=== PATIENT | male | born 1965 | race Caucasian/White ===

== ENCOUNTER 2024-07-14 16:31 | Inpatient (IN) | payer MEDICAID ==
[~2024-07-14] VITALS: Ht 188 cm; Wt 80.0 kg
[~2024-07-14 16:31] MED LIST: ACET-1881 PO; ALBU18; ASPI1TAB20 PO; METH-1181 PO
[2024-07-14 19:42] LABS: Basophils # (auto) 0 10 ^3/uL (0-0.2); Basophils % (auto) 0.5 % (0.0-2.0); Eosinophils # (auto) 0 10 ^3/uL (0-0.8); Eosinophils % (auto) 0.3 % (0.0-7.0); Hematocrit 47.3 % (41.0-53.0); Hemoglobin 15.8 g/dL (13.5-17.5); Lymphocytes # (auto) 1.8 10 ^3/uL (0.4-5.4); Lymphocytes % (auto) 33.5 % (10.0-50.0); Mean Corpuscular Hemoglobin 28.9 pg (28.0-32.0); Mean Corpuscular Hgb Conc. 33.4 g/dL (32.0-36.0); Mean Corpuscular Volume 86.5 fL (80.0-100.0); Monocytes # (auto) 0.8 10 ^3/uL (0-1.3); Monocytes % (auto) 14.9 % (0.0-12.0); Neutrophils # (auto) 2.8 10 ^3/uL (1.6-8.6); Neutrophils % (auto) 50.8 % (37.0-80.0); Nucleated Red Blood Cells % 0.3 %; Platelet Count (auto) 297 10^3/uL (140-450); Red Blood Cells 5.47 10^6/uL (4.5-5.90); Red Cell Distribution Width 13.4 % (11.8-14.3); White Blood Cell 5.4 10^3/uL (4.4-10.8)
[2024-07-14 20:02] LABS: Alanine Aminotransferase 12 U/L (7-40); Albumin 4.3 g/dL (3.2-4.8); Alkaline Phosphatase 94 U/L (46-116); Anion Gap 5 (5-15); Aspartate Aminotransferase 18 U/L (13-40); BUN/Creatinine Ratio 12.6 (10.0-20.0); Bilirubin, Total 0.5 mg/dL (0.2-1.0); Blood Urea Nitrogen 14 mg/dL (9-23); Calcium 8.9 mg/dL (8.7-10.4); Carbon Dioxide 28 mmol/L (20-30); Chloride 102 mmol/L (98-107); Glucose 121 mg/dL (74-106); Sodium 135 mmol/L (136-145); Total Protein 7.3 g/dL (5.7-8.2)
[2024-07-14] MEDS ORDERED: ACETAMINOPHEN 325 MG TAB PO PRN (22:45)
[2024-07-14] MEDS ORDERED: NITROGLYCERIN 0.4 MG SL TAB SL PRN (22:45)
[2024-07-14] MEDS ORDERED: ONDANSETRON HCL 4 MG/2 ML VIAL IV PRN (22:45)
[2024-07-14] MEDS ORDERED: ALBUTEROL SULF 2.5 MG/0.5ML(0.5%) NEB SOLN NEB PRN (22:45)
[2024-07-14] MEDS ORDERED: MORPHINE SULFATE INJ 2 MG/ml SYRG IV PRN (22:45)
[2024-07-14 22:59] LABS: Triglycerides 106 mg/dL (< 150)
[2024-07-14 23:00] LABS: LDL Cholesterol 144 mg/dL (< 100)
[2024-07-14 23:01] LABS: Cholesterol 199 mg/dL (< 200); HDL Cholesterol 41 mg/dL (40-59)
[2024-07-14] MEDS: ONDANSETRON HCL 4 MG/2 ML VIAL IV ONE (23:08)
[2024-07-14] MEDS: SODIUM CHLORIDE 0.9% 1,000 ML IV ONE (23:08)
[2024-07-14 23:13] VITALS: O2SAT 100
[2024-07-14] MEDS: KETOROLAC TROMETH 30 MG/ML 1ML VIAL IV ONE (23:16)
[2024-07-14] MEDS: FAMOTIDINE (10MG/ML) 2ML VL IV ONE (23:16)
[2024-07-14 23:30] VITALS: BP 122/79; PULSE 89; RESP 14; TEMP 100.3; O2SAT 100
[2024-07-15] VITALS (10 sets, daily range): BP systolic 101–137; BP diastolic 58–90; PULSE 67–85; RESP 16–20; TEMP 98.1–98.9; O2SAT 94–100
[2024-07-15 01:41] LABS: COVID19 ANTIGEN SOFIA FIA POSITIVE (NEGATIVE)
[2024-07-15 05:14] LABS: Chloride 105 mmol/L (98-107); Potassium 3.5 mmol/L (3.5-5.1); Sodium 138 mmol/L (136-145)
[2024-07-15 05:15] LABS: Anion Gap 3 (5-15); Calcium 8.4 mg/dL (8.7-10.4); Carbon Dioxide 30 mmol/L (20-30)
[2024-07-15 05:20] LABS: BUN/Creatinine Ratio 13.9 (10.0-20.0); Blood Urea Nitrogen 16 mg/dL (9-23); Glucose 100 mg/dL (74-106)
[2024-07-15] MEDS ORDERED: REMDESIVIR PER PHARMACY 0 ML IV SCH (07:00)
[2024-07-15 08:18] LABS: Magnesium 2.1 mg/dL (1.6-2.6)
[2024-07-15 08:19] LABS: CRP High Sensitivity 0.65 mg/dL (<1.0)
[2024-07-15] MEDS: ENOXAPARIN SOD 40 MG/0.4 ML SYRINGE SC SCH ×2 (08:43→09:53)
[2024-07-15 08:58] LABS: Hepatitis C Antibody Negative (Negative)
[2024-07-15] MEDS: ASPirin 81 mg TAB PO SCH (09:51)
[2024-07-15] MEDS: ZINC SULFATE 220mg CAP or TAB PO SCH (09:51)
[2024-07-15] MEDS: AZITHROMYCIN 500MG/ 250ML 250 ML IV SCH (09:53)
[2024-07-15] MEDS: REMDESIVIR 200 MG in NS 210ml LOADING DOSE ADULT IV ONE (15:00)
[2024-07-15] MEDS: DexAMETHasone SOD PHOS 10MG/1ML VIAL INJ IV ONE (16:54)
[2024-07-15] MEDS: ALBUTEROL SULF HFA 90MCG INH 200DOSE IN PRN (20:22)
[2024-07-15] MEDS: ATORVASTATIN 20 MG TAB PO SCH (21:57)
[2024-07-16] VITALS (7 sets, daily range): BP systolic 112–134; BP diastolic 55–88; PULSE 58–77; RESP 17–24; TEMP 97.4–98.4; O2SAT 96–98
[2024-07-16 06:07] LABS: Basophils # (auto) 0 10 ^3/uL (0-0.2); Basophils % (auto) 0.3 % (0.0-2.0); Eosinophils # (auto) 0 10 ^3/uL (0-0.8); Hematocrit 45.1 % (41.0-53.0); Hemoglobin 15.4 g/dL (13.5-17.5); Lymphocytes # (auto) 1.5 10 ^3/uL (0.4-5.4); Lymphocytes % (auto) 32.1 % (10.0-50.0); Mean Corpuscular Hemoglobin 29.1 pg (28.0-32.0); Mean Corpuscular Volume 85.6 fL (80.0-100.0); Monocytes # (auto) 0.5 10 ^3/uL (0-1.3); Monocytes % (auto) 10.6 % (0.0-12.0); Neutrophils # (auto) 2.7 10 ^3/uL (1.6-8.6); Nucleated Red Blood Cells % 0.2 %; Platelet Count (auto) 275 10^3/uL (140-450); Red Blood Cells 5.27 10^6/uL (4.5-5.90); Red Cell Distribution Width 13.4 % (11.8-14.3); White Blood Cell 4.8 10^3/uL (4.4-10.8)
[2024-07-16 06:33] LABS: Alanine Aminotransferase 23 U/L (7-40); Albumin 3.9 g/dL (3.2-4.8); Alkaline Phosphatase 86 U/L (46-116); Anion Gap 5 (5-15); Aspartate Aminotransferase 24 U/L (13-40); BUN/Creatinine Ratio 18.2 (10.0-20.0); Bilirubin, Total 0.4 mg/dL (0.2-1.0); Blood Urea Nitrogen 14 mg/dL (9-23); Calcium 9.1 mg/dL (8.7-10.4); Carbon Dioxide 28 mmol/L (20-30); Chloride 105 mmol/L (98-107); Glucose 112 mg/dL (74-106); Potassium 4.4 mmol/L (3.5-5.1); Sodium 138 mmol/L (136-145); Total Protein 6.8 g/dL (5.7-8.2)
[2024-07-16] MEDS: METOPROLOL TARTRATE 25 MG TAB PO ONE (11:47)
[2024-07-16] MEDS: MAGNESIUM OXIDE 400 MG TAB PO ONE (11:47)
[2024-07-16] MEDS ORDERED: METO25TA93 PO (14:51)
[2024-07-16] MEDS ORDERED: AZIT-185 PO (14:51)
[2024-07-16] MEDS ORDERED: MAGN400T40 PO (14:51)
[2024-07-16] MEDS ORDERED: REMDESIVIR 100mg 100 MG in SODIUM CHL 0.9% 230 ML IV SCH (15:00)
[2024-07-16] MEDS ORDERED: METOPROLOL TARTRATE 25 MG TAB PO SCH (22:00)
[2024-07-17] MEDS ORDERED: MAGNESIUM OXIDE 400 MG TAB PO SCH (10:00)
[2024-07-17 10:01] LABS: Hepatitis B Surface Antigen Negative (Negative)
== END 2024-07-16 16:48 | disposition home or self-care (01) | DRG 137 ==
LOC: ER 16:31 → TELE 22:38 → TELE-WESTW 07-15 05:00
PROVIDERS: ADMIT Nurse Practitioner; ATTEND Nurse Practitioner Acute Care
DX: U07.1 COVID-19 (principal); I47.20 Ventricular tachycardia, unspecified; J45.909 Unspecified asthma, uncomplicated; I49.3 Ventricular premature depolarization; E78.5 Hyperlipidemia, unspecified; R73.03 Prediabetes; I48.0 Paroxysmal atrial fibrillation; I25.2 Old myocardial infarction; Z79.899 Other long term (current) drug therapy; Z83.3 Family history of diabetes mellitus; Z82.3 Family history of stroke
CPT/HCPCS: 36415; 71045; 71046; 80048; 80053; 80061; 82306; 82728; 83036; 83605; 83735; 83880; 84443; 84484; 85025; 85379; 86141; 86803; 87340; 87426; 93306; 96374; G0378; J1100; J1885; J3490

== ENCOUNTER 2025-03-04 11:08 | Inpatient (IN) | payer MEDICAID ==
[~2025-03-04] VITALS: Ht 188 cm; Wt 83.6 kg
[~2025-03-04 11:08] MED LIST changes: +AZIT-185 PO; +MAGN400T40 PO; +METO25TA93 PO
--- NOTE | 2025-03-04 11:23 | ED.PDOC ---
History of Present Illness HPI Comments 59M presents to the ER w/ prior Hx of Pneumonia 2 months ago, AFIB, OR and Asthma which all may be associated to the c/c of body aches via 3 days. EMS report that the pt informed them that jasper wilde has been having chills, night sweat, N/V-Hematemesis for the past 3 days. When EMS arrived on scene the pt had a SAT of 92% RA and was given 5mg of albuterol and .5 Atrovent. PMHx of High Lipids. Denies chills, fever, /D, CP or no other associated symptoms, modifiers, recent injuries or sick contacts at this time. Time Seen by MD: 11:15 Primary Care Provider: unknown Reviewed Notes: Nurses Notes, Color Worker Notes, Medications, Allergies Allergies: Coded Allergies: NO KNOWN ALLERGIES (Unverified , 06/11/12) Home Meds Active Scripts Magnesium Oxide (MAGNESIUM OXIDE) 400 Mg Tab, 1 TAB PO DAILY, #30 TAB 5 Refills Prov:KEO JESSICA NP 07/16/24 Metoprolol Succinate (Metoprolol Succinate Er) 25 Mg Tab, 1 TAB PO DAILY, #90 TAB 1 Refill Prov:KEO JESSICA NP 07/16/24 Azithromycin (ZITHROMAX TABLET) 250 Mg Tb, 250 MG PO DAILY for 4 Days, #4 TAB Azithromycin pack unit dose 1. Give as directed. Prov:KEO JESSICA TIME STUDY CLERK 07/16/24 Reported Medications Methocarbamol (Methocarbamol) 500 Mg Tab, 500 MG PO BID, TAB 08/28/17 Acetaminophen (Acetaminophen) 325 Mg Tab, 500 MG PO TID PRN for MILD PAIN for 30 Days, MG 0 Refills 08/28/17 Aspirin (Aspir-81) 81 Mg Tab, 1 TAB PO DAILY, #30 TAB 5 Refills 08/28/17 Albuterol Sulfate (Ventolin Hfa) Aer, PRN 06/11/12 Information Source: Patient, Emergency Med Personnel Mode of Arrival: EMS Severity: Moderate Timing: Days Duration: Since onset, Days Prehospital treatment: None Past Medical History PAST MEDICAL HISTORY: AFIB, Asthma, High Lipids, OR Past Medical History (Other): pnem onia 2 months ago Surgical History: Denies all surgeries Family History Family History: Reviewed,noncontributory to illness, Unknown Social History Smoker: Non-Smoker Alcohol: Denies ETOH Use Drugs: Denies Drug Use Lives In: Home Constitutional: reports: chills, sweats (night); denies: diaphoresis, fatigue, fever, malaise, weakness, others EENTM: denies: blurred vision, double vision, ear bleeding, ear discharge, ear drainage, ear pain, ear ringing, eye pain, eye redness, hearing loss, mouth pain, mouth swelling, nasal discharge, nose bleeding, nose congestion, nose pain, photophobia, tearing, throat pain, throat swelling, voice changes, others Respiratory: denies: cough, hemoptysis, orthopnea, SOB at rest, shortness of breath, SOB with excertion, stridor, wheezing, others Cardiovascular: denies: chest pain, dizzy spells, diaphoresis, Dyspnea on exertion, edema, irregular heart beat, left arm pain, lightheadedness, pal pitations, PND, syncope, others Gastrointestinal: reports: hematemesis, nausea, vomiting; denies: abdomen distended, abdominal pain, blood streaked bowels, constipated, diarrhea, dysphagia, difficulty swallowing, melena, poor appetite, poor fluid intake, rectal bleeding, rectal pain, others Genitourinary: denies: burning, dysuria, flank pain, frequency, hematuria, incontinence, penile discharge, penile sore, pain, testicle pain, testicle swelling, urgency, others Neurological: denies: dizziness, fainting, headache, left sided numbness, left sided weakness, numbness, paresthesia, pre-existing deficit, right sided numbness, right sided weakness, seizure, speech problems, tingling, tremors, weakness, others Musculoskeletal: denies: back pain, gout, joint pain, joint swelling, muscle pain, muscle stiffness, neck pain, others Integumetry: denies: bruises, change in color, change in hair/nails, dryness, laceration, lesions, lumps, rash, wounds, others Allergic/Immunocompromised: denies: Difficulty Healing, Frequent Infections, Hives, Itching, others Hematologic/Lymphatic: denies: anemia, blood clots, easy bleeding, easy bruising, swollen glands, others Endocrine: denies: excessive hunger, excessive sweating, excessive thirst, excessive urination, flushing, intolerance to cold, intolerance to heat, unexplained weight gain, unexplained weight loss, others Psychiatric: denies: anxiety, bipolar disorder, depression, hopeless, panic disorder, schizophrenia, sleepless, suicidal, others All Other Systems: Reviewed and Negative Physical Exam General Appearance: Moderate Distress, Normal HEENT: Normal ENT Inspection, Pharynx Normal, TMs Normal Neck: Full Range of Motion, Non-Tender, Normal, Normal Inspection Respiratory: Chest Non-Tender, No Accessory Muscle Use, Respiratory Distress, Wheezing Cardiovascular: No Edema, No JVD, No Murmur, No Gallop, Normal Peripheral Pulses, Regular Rate/Rhythm Breast Exam: Deferred Gastrointestinal: No Organomegaly, Non Tender, No Pulsatile Mass, Normal Bowel Sounds, Soft Genitalia: Deferred Pelvic: Deferred Rectal: Deferred Extremities: No calf tenderness, Normal capillary refill, Normal inspection, Normal range of motion, Non-tender, No pedal edema Musculoskeletal : Apperance: Normal Neurologic: Alert, corporate giving manager II-XII nml as Tested, No Motor Deficits, Normal Affect, Normal Mood, No Sensory Deficits Cerebellar Function: NOT DONE Reflexes: NOT DONE Skin: Dry, Normal Color, Warm Peripheral Pulses: 3+ Radial (R), 3+ Radial (L) Lymphatic: No Adenopathy Was a procedure done? Was a procedure done?: No EKG EKG : Pulse Rate (adult): 77 [place]: Normal Cardiac Rhythm: NSR Differential Dx Considerations may include: Asthma exacerbation Electrolyte imbalance X-Ray, Labs, Meds, VS Vital Signs Date Time Temp Pulse Resp B/P (MAP) Pulse Ox O2 Delivery O2 Flow Rate FiO2 03/04/25 11:30 98.2 103 22 125/77 (93) 95 98.2 03/04/25 11:28 16 90 Room Air* 0 21 Lab Test 03/04/25 11:22 Range/Units White Blood Count 10.2 4.4-10.8 10^3/uL Red Blood Count 5.23 4.5-5.90 10^6/uL Hemoglobin 15.2 13.5-17.5 g/dL Hematocrit 45.1 41.0-53.0 % Mean Corpuscular Volume 86.2 80.0-100.0 fL Mean Corpuscular Hemoglobin 29.1 28.0-32.0 pg Mean Corpuscular Hemoglobin Concent 33.8 32.0-36.0 g/dL Red Cell Distribution Width 13.0 11.8-14.3 % Platelet Count 361 140-450 10^3/uL Mean Platelet Volume 7.1 6.9-10.8 fL Neutrophils (%) (Auto) 62.9 37.0-80.0 % Lymphocytes (%) (Auto) 22.2 10.0-50.0 % Monocytes (%) (Auto) 13.3 H 0.0-12.0 % Eosinophils (%) (Auto) 0.8 0.0-7.0 % Basophils (%) (Auto) 0.8 0.0-2.0 % Neutrophils # (Auto) 6.4 1.6-8.6 10 ^3/uL Lymphocytes # (Auto) 2.3 0.4-5.4 10 ^3/uL Monocytes # (Auto) 1.4 H 0-1.3 10 ^3/uL Eosinophils # (Auto) 0.1 0-0.8 10 ^3/uL Basophils # (Auto) 0.1 0-0.2 10 ^3/uL Nucleated Red Blood Cells 0.1 % Sodium Level 136 136-145 mmol/L Potassium Level 4.2 3.5-5.1 mmol/L Chloride Level 102 98-107 mmol/L Carbon Dioxide Level 28 20-31 mmol/L Anion Gap 6 5-15 Blood Urea Nitrogen 11 9-23 mg/dL Creatinine 1.01 0.700-1.30 mg/dL Glomerular Filtration Rate Calc 85 >90 mL/min BUN/Creatinine Ratio 10.9 10.0-20.0 Serum Glucose 104 74-106 mg/dL Calcium Level 9.5 8.7-10.4 mg/dL Troponin I High Sensitivity 11 </=54 ng/L Current Medications Medications (Trade) Dose Ordered Sig/Judy Route Start Time Stop Time Status Last Admin Albuterol (Ventolin Medneb) 5 mg ONCE ONCE NEB 03/04/25 11:15 03/04/25 11:16 DC 03/04/25 11:24 Ipratropium [place] (Atrovent Medneb) 0.5 mg ONCE ONCE NEB 03/04/25 11:15 03/04/25 11:16 DC 03/04/25 11:24 Patient alert. Complaining of shortness a breath. Was given breathing treatment. History of asthma. Was given steroid. Continues to have shortness a breath. Reviewed his history. Explained to the patient. Continue cardiac monitoring. Chest x-ray reviewed does not show any acute changes. Cardiac marker within normal limits. EKG reviewed does not show any acute changes. Time of 1ST Reevaluation: 11:45 Reevaluation 1ST: Unchanged Patient Education/Counseling: Diagnosis, Treatment, Prognosis Family Education/Counseling: No Family Present Departure 1 Departure Time of Disposition: 12:24 Impression: Primary Impression: Asthma exacerbation Qualified Codes: J45.41 - Moderate persistent asthma with (acute) exacerbation Disposition: ADMITTED INPATIENT Admit to: Med Surg Condition: Guarded Critical Care Note Critical Care Time?: Yes (45 min-critical care time only) Critical care comment: Continue breathing treatment Stability Stability form required: No Heart Score Heart Score: Heart Score Response (Comments) Value History Slightly Suspicious 0 EKG Normal 0 Age 45-64 1 Risk Factors 1 or 2 risk factors 1 Troponin Normal limit 0 Total 2 I personally scribed for CRISTOPHER BARRIENTOS MD ([email or web address]) on 03/04/25 at 11:23. E lectronically submitted by Brian Dodson ([email or web address]). CRISTOPHER BARRIENTOS MD Mar 04, 2025 11:23
[2025-03-04] MEDS: ALBUTEROL SULF 2.5 MG/0.5ML(0.5%) NEB SOLN NEB ONE ×2 (11:24→12:35)
[2025-03-04] MEDS: IPRATROPIUM BROM 0.5 MG/2.5ML INH SOL NEB ONE ×2 (11:24→12:35)
[2025-03-04 11:40] LABS: Basophils # (auto) 0.1 10 ^3/uL (0-0.2); Basophils % (auto) 0.8 % (0.0-2.0); Eosinophils # (auto) 0.1 10 ^3/uL (0-0.8); Eosinophils % (auto) 0.8 % (0.0-7.0); Hematocrit 45.1 % (41.0-53.0); Hemoglobin 15.2 g/dL (13.5-17.5); Lymphocytes # (auto) 2.3 10 ^3/uL (0.4-5.4); Lymphocytes % (auto) 22.2 % (10.0-50.0); Mean Corpuscular Hemoglobin 29.1 pg (28.0-32.0); Mean Corpuscular Hgb Conc. 33.8 g/dL (32.0-36.0); Mean Corpuscular Volume 86.2 fL (80.0-100.0); Monocytes # (auto) 1.4 10 ^3/uL (0-1.3); Monocytes % (auto) 13.3 % (0.0-12.0); Neutrophils # (auto) 6.4 10 ^3/uL (1.6-8.6); Neutrophils % (auto) 62.9 % (37.0-80.0); Nucleated Red Blood Cells % 0.1 %; Platelet Count (auto) 361 10^3/uL (140-450); Red Blood Cells 5.23 10^6/uL (4.5-5.90); White Blood Cell 10.2 10^3/uL (4.4-10.8)
[2025-03-04 11:42] LABS: Chloride 102 mmol/L (98-107); Potassium 4.2 mmol/L (3.5-5.1)
[2025-03-04 11:43] LABS: Anion Gap 6 (5-15); Calcium 9.5 mg/dL (8.7-10.4); Carbon Dioxide 28 mmol/L (20-31)
[2025-03-04 11:44] LABS: Sodium 136 mmol/L (136-145)
[2025-03-04 11:48] LABS: BUN/Creatinine Ratio 10.9 (10.0-20.0); Blood Urea Nitrogen 11 mg/dL (9-23); Glucose 104 mg/dL (74-106)
--- NOTE | 2025-03-04 12:03 | DVH ---
EXAM: XY CHEST PORTABLE Indication: sob Technique: Single frontal view of the chest was obtained Comparison: XY CHEST PORTABLE on DOS: 07/16/24 FINDINGS: Lines and Tubes: None Lungs: No focal consolidation. Pleura: No effusion. No pneumothorax. Cardiomediastinal contours: Unremarkable Bones: No acute osseous abnormality. IMPRESSION: No acute cardiopulmonary disease.
[2025-03-04] MEDS: methylPREDNISolone SOD SUCC 125 MG/2 ML VL IV ONE ×2 (12:30→12:53)
[2025-03-04 12:51] VITALS: RESP 18; O2SAT 98
[2025-03-04] MEDS: MAGNESIUM SULFATE 1GM/100ML 100 ML IV ONE (12:53)
--- NOTE | 2025-03-04 19:16 | ECG ---
[facility] Test Date: 2025-03-04 Test Time: 11:10:32 Pat Name: MIKE MALHOTRA Department: ED Room: 0274 Gender: M Design Assembler: ARLEEN : 1965 Requested By: CRISTOPHER BARRIENTOS Order Number: [id number] Reading MD: Saeed Yo Measurements Intervals [place] Rate: 88 P: 49 KS: 134 QRS: -28 QRSD: 89 T: 13 QT: 387 QTc: 469 Interpretive Statements Sinus rhythm Multiform ventricular premature complexes Probable left atrial enlargement Abnormal R-wave progression, early transition Left ventricular hypertrophy Nonspecific T abnormalities, lateral leads Electronically Signed On 03-05-2025 20:54:27 PDT by Saeed Yo Please click the below link to view image of tracing.
[2025-03-04 21:00] VITALS: BP 128/74; PULSE 74; RESP 20; TEMP 97.6; O2SAT 98
[2025-03-05] VITALS (12 sets, daily range): BP systolic 103–143; BP diastolic 63–97; PULSE 80–100; RESP 16–20; TEMP 97.4–98.2; O2SAT 91–98
[2025-03-05] MEDS: ACETAMINOPHEN 325 MG TAB PO PRN (00:56)
[2025-03-05] MEDS: methylPREDNISolone SOD SUCC 40 MG/ML VL IV SCH (00:57)
--- NOTE | 2025-03-05 01:03 | DVHHP2 ---
History of Present Illness Reason for Visit: Shortness for breath History of Present Illness 59-year-old male with a history of asthma presents for evaluation of shortness for breath. Patient reports a three day history of worsening shortness for breath associated body aches and a nonproductive cough. Denies chest pain or p alpitations. No other acute complaints reported. Past Medical History Dyslipidemia, mi, asthma, AFib Past Surgical History Denies Family History Noncontributory Smoke: No ALCOHOL: none Drugs: None Lives: with Family Review of Systems Review of Systems Review of systems are currently negative otherwise addressed in HPI. Allergies: Coded Allergies: NO KNOWN ALLERGIES (Unverified , 06/11/12) Medications Current Medications Medications Dose Ordered Sig/Judy Route Start Time Stop Time Status Last Admin Dose Admin Albuterol 2.5 mg Q6HPRN PRN NEB 03/04/25 19:45 Ipratropium [place] 0.5 mg Q6HPRN PRN NEB 03/04/25 19:45 Metoprolol Succinate 25 mg DAILY PO 03/05/25 10:00 Methylprednisolone Sodium Succinate 40 mg BID IV 03/04/25 22:00 Magnesium Oxide 400 mg DAILY PO 03/05/25 10:00 Temazepam 15 mg QHSP PRN PO 03/04/25 19:45 Ondansetron HCl 4 mg Q4HP PRN IV 03/04/25 19:45 Acetaminophen 650 mg Q6HP PRN PO 03/04/25 19:45 Exam Vital Signs Vital Signs Date Time Temp Pulse Resp B/P (MAP) Pulse Ox O2 Delivery O2 Flow Rate FiO2 03/05/25 00:51 95 20 96 Room Air* 0 21 21 03/05/25 00:48 97.8 130/92 (105) 97.8 Exam Gen: 59-year-old male in mild distress Skin: Warm, dry, normal color and texture, no rash. HEENT: Normocephalic atraumatic, mucous membranes moist and pink. Neck: Cervical and supraclavicular nodes normal without enlargement, trachea is midline, thyroid gland is normal without masses. Pulmonary: Bilateral wheezing Cardiac: Regular rate and rhythm. No murmur Abdomen: Soft, nontender, nondistended, bowel sounds present all 4 quadrants, no guarding, no rigidity, no organomegaly. Extremities: No cyanosis, clubbing, no edema Neuro: Cranial nerves II through XII grossly intact, normal affect and speech, no focal motor deficits. Labs/Xrays ORDERING PHYSICIAN: CRISTOPHER BARRIENTOS MD PROCEDURE(s): CXRP - CHEST PORTABLE REASON: sob ORDER NUMBER(s): [id number], ACCESSION NUMBER(s): [id number] EXAM: XY CHEST PORTABLE Indication: sob Technique: Single frontal view of the chest was obtained Comparison: XY CHEST PORTABLE on DOS: 07/16/24 FINDINGS: Lines and Tubes: None Lungs: No focal consolidation. Pleura: No effusion. No pneumothorax. Cardiomediastinal contours: Unremarkable Bones: No acute osseous abnormality. IMPRESSION: No acute cardiopulmonary disease. Labs Test 03/04/25 19:52 03/04/25 11:22 Range/Units D-Dimer, Quantitative 0.45 0.0-0.49 mg/L FEU White Blood Count 10.2 4.4-10.8 10^3/uL Red Blood Count 5.23 4.5-5.90 10^6/uL Hemoglobin 15.2 13.5-17.5 g/dL Hematocrit 45.1 41.0-53.0 % Mean Corpuscular Volume 86.2 80.0-100.0 fL Mean Corpuscular Hemoglobin 29.1 28.0-32.0 pg Mean Corpuscular Hemoglobin Concent 33.8 32.0-36.0 g/dL Red Cell Distribution Width 13.0 11.8-14.3 % Platelet Count 361 140-450 10^3/uL Mean Platelet Volume 7.1 6.9-10.8 fL Neutrophils (%) (Auto) 62.9 37.0-80.0 % Lymphocytes (%) (Auto) 22.2 10.0-50.0 % Monocytes (%) (Auto) 13.3 H 0.0-12.0 % Eosinophils (%) (Auto) 0.8 0.0-7.0 % Basophils (%) (Auto) 0.8 0.0-2.0 % Neutrophils # (Auto) 6.4 1.6-8.6 10 ^3/uL Lymphocytes # (Auto) 2.3 0.4-5.4 10 ^3/uL Monocytes # (Auto) 1.4 H 0-1.3 10 ^3/uL Eosinophils # (Auto) 0.1 0-0.8 10 ^3/uL Basophils # (Auto) 0.1 0-0.2 10 ^3/uL Nucleated Red Blood Cells 0.1 % Sodium Level 136 136-145 mmol/L Potassium Level 4.2 3.5-5.1 mmol/L Chloride Level 102 98-107 mmol/L Carbon Dioxide Level 28 20-31 mmol/L Anion Gap 6 5-15 Blood Urea Nitrogen 11 9-23 mg/dL Creatinine 1.01 0.700-1.30 mg/dL Glomerular Filtration Rate Calc 85 >90 mL/min BUN/Creatinine Ratio 10.9 10.0-20.0 Serum Glucose 104 74-106 mg/dL Calcium Level 9.5 8.7-10.4 mg/dL Troponin I High Sensitivity 11 </=54 ng/L Assessment/Plan Assessment/Plan Assessment Acute on chronic hypoxic respiratory failure Asthma exacerbation Hypertension Plan Admit the patient to Med surge to the hospitalist Med nebs Resume home medications Continue treatment per orders. Plan discussed with: Patient My Orders Orders - MAHOGANY CHANG Procedure Category Date Status Time Albuterol Medneb PHA 03/04/25 In Process (Ventolin Medneb) 19:45 Ipratropium Medneb PHA 03/04/25 In Process (Atrovent Medneb) 19:45 Metoprolol Xl PHA 03/05/25 In Process Succinate (Toprol Xl) 10:00 Methylprednisolone PHA 03/04/25 In Process Sod Succ (Solu Medrol 22:00 Magnesium Oxide PHA 03/05/25 In Process Tablet (Mag-Ox Tablet) 10:00 Admit ADMIT 03/04/25 Transmitted 19:34 Temazepam (Restoril) PHA 03/04/25 In Process 19:45 Ondansetron Hcl PHA 03/04/25 In Process (Zofran) 19:45 Cardiac DIET 03/05/25 Transmitted Diet-2gna,Lofat,Lochol Breakfast Condition: Stable ANTWON 03/04/25 In Process 19:34 Acetaminophen Tablet PHA 03/04/25 In Process (Tylenol Tablet) 19:45 Bedrest With Bathroom ANTWON 03/04/25 In Process Privileg 19:34 Date of Service: Mar 04, 2025 Billing Provider: MAHOGANY CHANG Common Visit Codes: [id number] INP/OBS CARE (HIGH) MAHOGANY CHANG Mar 05, 2025 01:03
[2025-03-05] MEDS: ONDANSETRON HCL 4 MG/2 ML VIAL IV PRN (03:43)
[2025-03-05] MEDS: MAGNESIUM OXIDE 400 MG TAB PO SCH (09:12)
[2025-03-05] MEDS: IPRATROPIUM BROM 0.5 MG/2.5ML INH SOL NEB PRN (09:45)
[2025-03-05] MEDS: ALBUTEROL SULF 2.5 MG/0.5ML(0.5%) NEB SOLN NEB PRN (09:46)
[2025-03-05] MEDS: METOPROLOL SUCCINATE XL 50 MG TAB PO SCH (10:07)
[2025-03-05 10:49] LABS: COVID19 ANTIGEN SOFIA FIA NEGATIVE (NEGATIVE); Rapid Influenza A Negative (Negative); Rapid Influenza B Negative (Negative)
--- NOTE | 2025-03-05 12:51 | DVHPN2 ---
Subjective Patient continues to report having generalized weakness and some shortness of breath. Reviewed: Care Plan, H&P, Labs, Medications, Previous Orders, Radiology Changes from previous H/P or p: No Changes General: Per HPI Objective Vitals Vital Signs Date Time Temp Pulse Resp B/P (MAP) Pulse Ox O2 Delivery O2 Flow Rate FiO2 03/05/25 10:07 97 134/76 03/05/25 09:51 18 98 03/05/25 09:45 Room Air* 0 21 03/05/25 09:00 97.9 97.9 General Appearance: Alert, Oriented X3, Cooperative, mild distress HEENT: Atraumatic, PERRLA Lungs: Other (Expiratory wheezing in upper entry lobes. Decreased breath sounds bases) Cardiovascular: Normal S1, Normal S2 Abdomen: Normal bowel sounds, Soft, No tenderness, No hepatospenomegaly Back: Flank Tenderness, Midline Tenderness Neuro: Normal gait, Normal speech Psych/Mental Status: Mental status NL, Mood NL Medications Current Medications Medications Dose Ordered Sig/Judy Route Start Time Stop Time Status Last Admin Dose Admin Albuterol 2.5 mg Q6HPRN PRN NEB 03/04/25 19:45 03/05/25 09:46 2.5 MG Ipratropium [place] 0.5 mg Q6HPRN PRN NEB 03/04/25 19:45 03/05/25 09:45 0.5 MG Metoprolol Succinate 25 mg DAILY PO 03/05/25 10:00 03/05/25 10:07 25 MG Methylprednisolone Sodium Succinate 40 mg BID IV 03/04/25 22:00 03/05/25 09:13 40 MG Magnesium Oxide 400 mg DAILY PO 03/05/25 10:00 03/05/25 09:12 400 MG Temazepam 15 mg QHSP PRN PO 03/04/25 19:45 Ondansetron HCl 4 mg Q4HP PRN IV 03/04/25 19:45 03/05/25 09:12 4 MG Acetaminophen 650 mg Q6HP PRN PO 03/04/25 19:45 03/05/25 00:56 650 MG Laboratory Results Laboratory Tests 03/04/25 11:22 Coagulation Test 03/04/25 19:52 D-Dimer, Quantitative 0.45 mg/L FEU (0.0-0.49) Labs and/or images reviewed: Labs reviewed by me, Image(s) reviewed by me Assessment/Plan Assessment/Plan Impression: -acute hypoxic respiratory failure -asthma exacerbation -primary hypertension -rule out bronchial pneumonia, Gram-positive/Gram-negative etiology Plan: -change bronchodilators to q.6 hours -start antibiotic therapy with Rocephin and azithromycin -continue beta-paulino therapy -repeat chest x-ray in a.m. -reassess for discharge in a.m. Total time spent with patient discussing and formulating plan of care: 35 minutes. This medical document was created using an electronic medical record system with [employer] dictation system. Although this document has been carefully reviewed, there may still be some phonetic and typographical errors. These areas are purely typographical due to imperfections of the software programs, and do not reflect any compromise in the patient's medical care. Plan discussed with: Patient, Other (RN) My Orders Orders - KEO JESSICA NP Procedure Category Date Status Time Albuterol Medneb PHA 03/05/25 Verified (Ventolin Medneb) 18:00 Ipratropium Medneb PHA 03/05/25 Verified (Atrovent Medneb) 18:00 Chest Portable XY 03/06/25 Verified 04:00 Azithromycin Tablet PHA 03/05/25 Verified (Zithromax Tablet) 12:45 Ceftriaxone Ivpb PHA 03/05/25 Verified Rocephin 12:45 Date of Service: Mar 05, 2025 Billing Provider: KEO JESSICA NP Common Visit Codes: [id number] INP/OBS CARE(HIGH) KEO JESSICA NP Mar 05, 2025 12:51
[2025-03-05] MEDS: AZITHROMYCIN 250 MG TAB PO SCH (13:56)
[2025-03-05] MEDS: cefTRIAXone 1GM/50ML D5W 50 ML IV SCH (13:57)
[2025-03-05] MEDS: IPRATROPIUM BROM 0.5 MG/2.5ML INH SOL NEB SCH (19:14)
[2025-03-05] MEDS: ALBUTEROL SULF 2.5 MG/0.5ML(0.5%) NEB SOLN NEB SCH (19:14)
[2025-03-05] MEDS: TEMAZEPAM 15 MG CAP PO PRN (21:31)
[2025-03-06] VITALS (12 sets, daily range): BP systolic 101–157; BP diastolic 63–87; PULSE 75–98; RESP 16–20; TEMP 97.6–98; O2SAT 92–100
--- NOTE | 2025-03-06 09:24 | DVH ---
EXAM: XY CHEST PORTABLE Indication: pain Technique: Single frontal view of the chest was obtained Comparison: XY CHEST PORTABLE on DOS: 03/04/25, XY CHEST PORTABLE on DOS: 07/16/24 FINDINGS: Lines and Tubes: None Lungs: No focal consolidation. Pleura: No effusion. No pneumothorax. Cardiomediastinal contours: Unremarkable Bones: No acute osseous abnormality. IMPRESSION: No acute cardiopulmonary disease.
[2025-03-06] MEDS ORDERED: AZITTAB PO (15:12)
--- NOTE | 2025-03-06 15:16 | DVHDS2 ---
Discharge Summary Date of Admission Mar 04, 2025 at 19:34 Date of Discharge: Mar 06, 2025 Admitting Diagnosis Acute respiratory failure Labs/Diagnostic Data: Laboratory Results Test 03/05/25 08:10 03/04/25 19:52 03/04/25 11:22 Influenza Type A Antigen Negative (Negative) Influenza Type B Antigen Negative (Negative) SARS-CoV-2 Antigen (Rapid) Negative (NEGATIVE) D-Dimer, Quantitative 0.45 mg/L FEU (0.0-0.49) White Blood Count 10.2 10^3/uL (4.4-10.8) Red Blood Count 5.23 10^6/uL (4.5-5.90) Hemoglobin 15.2 g/dL (13.5-17.5) Hematocrit 45.1 % (41.0-53.0) Mean Corpuscular Volume 86.2 fL (80.0-100.0) Mean Corpuscular Hemoglobin 29.1 pg (28.0-32.0) Mean Corpuscular Hemoglobin Concent 33.8 g/dL (32.0-36.0) Red Cell Distribution Width 13.0 % (11.8-14.3) Platelet Count 361 10^3/uL (140-450) Mean Platelet Volume 7.1 fL (6.9-10.8) Neutrophils (%) (Auto) 62.9 % (37.0-80.0) Lymphocytes (%) (Auto) 22.2 % (10.0-50.0) Monocytes (%) (Auto) 13.3 % (0.0-12.0) Eosinophils (%) (Auto) 0.8 % (0.0-7.0) Basophils (%) (Auto) 0.8 % (0.0-2.0) Neutrophils # (Auto) 6.4 10 ^3/uL (1.6-8.6) Lymphocytes # (Auto) 2.3 10 ^3/uL (0.4-5.4) Monocytes # (Auto) 1.4 10 ^3/uL (0-1.3) Eosinophils # (Auto) 0.1 10 ^3/uL (0-0.8) Basophils # (Auto) 0.1 10 ^3/uL (0-0.2) Nucleated Red Blood Cells 0.1 % Sodium Level 136 mmol/L (136-145) Potassium Level 4.2 mmol/L (3.5-5.1) Chloride Level 102 mmol/L (98-107) Carbon Dioxide Level 28 mmol/L (20-31) Anion Gap 6 (5-15) Blood Urea Nitrogen 11 mg/dL (9-23) Creatinine 1.01 mg/dL (0.700-1.30) Glomerular Filtration Rate Calc 85 mL/min (>90) BUN/Creatinine Ratio 10.9 (10.0-20.0) Serum Glucose 104 mg/dL (74-106) Calcium Level 9.5 mg/dL (8.7-10.4) Troponin I High Sensitivity 11 ng/L (</=54) Other Laboratory Tests 03/04/25 11:22 Brief Hx & Hospital Course: History of Present Illness 59-year-old male with a history of asthma presents for evaluation of shortness for breath. Patient reports a three day history of worsening shortness for breath associated body aches and a nonproductive cough. Denies chest pain or palpitations. No other acute complaints reported. Course of hospitalization: Patient was started on IV antibiotic therapy, O2 supplementation. Patient had a repeat chest x-ray today which reveals no infiltrates. Patient was respiratory status has improved for which he was now on room air with his wheezing resolved. Patient will be discharged home for which he was agreeable. He will be continued on an azithromycin unit Dosepak 1. Patient was states he has adequate supply of home albuterol for his nebulizer machine. He was also instructed to take [id number] antihistamines, for which he states he has a home as well. Physical examination General: Alert and Oriented x3. No acute distress. Well-nourished. Eyes: EOMI. Anicteric. HENT: Moist mucous membranes. Lungs: Clear to auscultation bilaterally. No accessory muscle use. Cardiovascular: Regular rate and rhythm. No murmur. No JVD. Abdomen: Soft, non-tender and non-distended. No palpable masses. Extremities: No edema. Non-tender. Skin: No rashes or lesions. Warm. Neurologic: No focal neurological deficits. CN II-XII grossly intact, but not individually tested. Psychiatric: Cooperative. Appropriate mood and affect. Total time spent with patient discussing and formulating plan of care: 35 minutes. This medical document was created using an electronic medical record system with [employer] dictation system. Although this document has been carefully reviewed, there may still be some phonetic and typographical errors. These areas are purely typographical due to imperfections of the software programs, and do not reflect any compromise in the patient's medical care. Condition at Discharge: Fair Final Diagnosis/Problems List Acute hypoxic respiratory failure Secondary diagnosis: -asthma exacerbation -primary hypertension -rule out bronchial pneumonia, Gram-positive/Gram-negative etiology Discharge Disposition: Home Discharge Instruct/Medications Diet: Regular Activity: No Restrictions, As Tolerated Follow Up/Referral: Follow up with PCP in 1-2 weeks Medications: Azithromycin unit Dosepak 1. Take as directed. Continue to use albuterol nebulizer treatment as needed for shortness of Breath every 4 hours Take antihistamine OTC daily for the next one week 36 Discharge Statement: "Patient was advised to return to the ER or call 911 if any headaches, dizziness, shortness of breath, chest pain, abdominal pain, bleeding, fevers, or worsening of medical condition. Patient was counseled about treatment plan, medications, possible side effects, patientverbalized understanding. All questions were answered to the best of my ability. This discharge took greater then 30 minutes in planning, reviewing documentation, counseling the patient, and discussing with other team members." ASSESSMENT ASSESSMENT Assessment Acute hypoxic respiratory failure Date of Service: Mar 06, 2025 Billing Provider: KEO JESSICA NP Common Visit Codes: 88591-ZTB/OBS DISCH DAY >30min KEO JESSICA NP Mar 06, 2025 15:16
== END 2025-03-06 16:40 | disposition home or self-care (01) | DRG 133 ==
LOC: ER 11:08 → EDBD 11:08 → OVERFLOW 19:34 → WEST WING 03-05 14:11
PROVIDERS: ADMIT Nurse Practitioner Acute Care; ATTEND Nurse Practitioner Acute Care
DX: J96.01 Acute respiratory failure with hypoxia (principal); J15.69 Pneumonia due to other Gram-negative bacteria; K92.0 Hematemesis; J15.9 Unspecified bacterial pneumonia; J45.901 Unspecified asthma with (acute) exacerbation; I48.91 Unspecified atrial fibrillation; I10 Essential (primary) hypertension; Z20.822 Contact with and (suspected) exposure to COVID-19; E78.5 Hyperlipidemia, unspecified; Z87.01 Personal history of pneumonia (recurrent); Z79.1 Long term (current) use of non-steroidal anti-inflammatories (NSAID); Z79.899 Other long term (current) drug therapy; Z79.82 Long term (current) use of aspirin; I25.2 Old myocardial infarction
CPT/HCPCS: 36415; 71045; 80048; 84484; 85025; 85379; 87426; 87804; 93005; 94640; 96365; 96375; 99291; G0378; J2405